=== PATIENT | male | born 1990 | race Caucasian/White ===

== ENCOUNTER 2019-01-22 14:28 | Emergency (ER) | payer MEDICAID, OTHER ==
[~2019-01-22] VITALS: Ht 180.3 cm; Wt 65.0 kg
[2019-01-22 14:35] VITALS: BP 132/83
[2019-01-22] MEDS ORDERED: PENI250T2 PO (15:20)
[2019-01-22] MEDS ORDERED: NAPR-56 PO (15:20)
== END 2019-01-22 15:37 | disposition home or self-care (01) ==
LOC: ER 14:29
DX: K04.7 Periapical abscess without sinus (principal); Z79.2 Long term (current) use of antibiotics; Z79.899 Other long term (current) drug therapy
CPT/HCPCS: 99283

== ENCOUNTER 2019-05-07 09:17 | Emergency (ER) | payer MEDICAID ==
[~2019-05-07] VITALS: Ht 177.8 cm; Wt 63.6 kg
[2019-05-07 09:43] VITALS: BP 146/75
[2019-05-07] MEDS ORDERED: HYDR-4353 PO (11:55)
[2019-05-07] MEDS ORDERED: ORPH100T2 PO (11:55)
== END 2019-05-07 12:07 | disposition home or self-care (01) ==
LOC: ER 09:17
DX: M54.31 Sciatica, right side (principal); Z79.899 Other long term (current) drug therapy
CPT/HCPCS: 99284

== ENCOUNTER → 2021-01-02 | Emergency (ER) | payer MEDICAID ==
[~2021-01-02] VITALS: Ht 182.9 cm; Wt 70.5 kg
[~2021-01-02] MED LIST: CYCL-1 PO; IBUP-1985 PO; LIDO700A32 TOP; ORPH100T2 PO; PENI500T2 PO
[2021-01-02 07:16] VITALS: BP 129/84
== END | disposition home or self-care (01) ==
LOC: ER 15:31
DX: K04.7 Periapical abscess without sinus (principal); K08.89 Other specified disorders of teeth and supporting structures; Z79.2 Long term (current) use of antibiotics; Z79.899 Other long term (current) drug therapy
CPT/HCPCS: 99283